=== PATIENT | female | born 1940 | race Caucasian/White ===

== ENCOUNTER → 2018-05-13 | Outpatient (CLI) | payer MEDICARE ==
--- NOTE | 2018-05-14 13:25 | MM ---
Reason for exam: screening (asymptomatic). Last mammogram was performed 2 years ago. History: Patient is postmenopausal. Excisional biopsy of the right breast, March 11, 2007. Excisional biopsy of the right breast, June 20, 2006. Benign right mammotome panel of the right breast, June 06, 2006. Physical Findings: A clinical breast exam by your physician is recommended on an annual basis and results should be correlated with mammographic findings. MG 3D Screening Mammo W/Cad Bilateral CC and MLO view(s) were taken. Prior study comparison: May 14, 2016, bilateral MG 3d screening mammo w/cad. July 01, 2014, bilateral MG screening mammo w CAD. There are scattered fibroglandular densities. There is chronic nodularity in the left breast. No significant changes when compared with prior studies. ASSESSMENT: Benign, BI-RAD 2 RECOMMENDATION: Routine screening mammogram of both breasts in 1 year.
== END | disposition home or self-care (01) ==
LOC: RADMAMWWP 14:49
PROVIDERS: ATTEND Internal Medicine Geriatric Medicine
DX: Z12.31 Encounter for screening mammogram for malignant neoplasm of breast (principal)
CPT/HCPCS: 77063; 77067

== ENCOUNTER → 2020-02-08 | Outpatient (CLI) | payer MEDICARE ==
--- NOTE | 2020-02-08 15:58 | BD ---
EXAMINATION TYPE: Axial Bone Density DATE OF EXAM: 02/08/2020 COMPARISON: 05/14/2016 CLINICAL HISTORY: Height: 61.2 IN Weight: 182 LBS RISK FACTORS HISTORY OF: Active: YES Postmenopausal woman: AGE 57 Lost more than 2 inches in height since high school: YES 3" MEDICATIONS: Additional Medications: CALCIUM, VIT D, HIGH CHOLESTEROL MEDS EXAM MEASUREMENTS: Bone mineral densitometry was performed using the FIRE1 System. Bone mineral density as measured about the Lumbar spine is: ----- L1-L4(G/cm2): 1.244 T Score Values are as follows: ----- L2: 0.6 ----- L3: 0.0 ----- L4: 1.6 ----- L1-L4: 0.5 Bone mineral density has: Increased 1.1% since study of: 05/14/2016 Bone mineral density about the R hip (g/cm2): 0.854 Bone mineral density about the L hip (g/cm2): 0.843 T Score values are as follows: -----R Neck: -1.3 -----L Neck: -1.4 -----R Total: -0.9 -----L Total: -0.8 Bone mineral density has: Decreased -2.5% since study of: 05/14/2016 IMPRESSION: No evidence for osteoporosis or osteopenia. NOTE: T-SCORE=SD OF THE YOUNG ADULT MEAN.
--- NOTE | 2020-02-14 12:01 | MM ---
Reason for exam: screening (asymptomatic). Last mammogram was performed 1 year and 9 months ago. History: Patient is postmenopausal. Excisional biopsy of the right breast, March 11, 2007. Excisional biopsy of the right breast, June 20, 2006. Benign right mammotome panel of the right breast, June 06, 2006. Physical Findings: A clinical breast exam by your physician is recommended on an annual basis and results should be correlated with mammographic findings. MG 3D Screening Mammo W/Cad Bilateral CC and MLO view(s) were taken. Prior study comparison: May 13, 2018, bilateral MG 3d screening mammo w/cad. May 14, 2016, bilateral MG 3d screening mammo w/cad. There are scattered fibroglandular densities. There is chronic nodularity in the right breast. There is no discrete abnormality. ASSESSMENT: Benign, BI-RAD 2 RECOMMENDATION: Routine screening mammogram of both breasts in 1 year.
== END | disposition home or self-care (01) ==
LOC: RADMAMWWP 13:34
PROVIDERS: ATTEND Internal Medicine Geriatric Medicine
DX: Z12.31 Encounter for screening mammogram for malignant neoplasm of breast (principal); M81.0 Age-related osteoporosis without current pathological fracture
CPT/HCPCS: 77063; 77067; 77080

== ENCOUNTER → 2020-11-15 | Outpatient (CLI) | payer MEDICARE ==
--- NOTE | 2020-11-15 12:52 | US ---
EXAMINATION TYPE: US venous doppler duplex LE RT DATE OF EXAM: 11/15/2020 12:29 PM COMPARISON: NONE CLINICAL HISTORY: I82.402 DVT of Lt Lower extremity. SIDE PERFORMED: Right TECHNIQUE: The lower extremity deep venous system is examined utilizing real time linear array sonog ritu with graded compression, doppler sonography and color-flow sonography. VESSELS IMAGED: Common Femoral Vein Deep Femoral Vein Greater Saphenous Vein * Femoral Vein Popliteal Vein Small Saphenous Vein * Proximal Calf Veins (* superficial vessels) Right Leg: Negative for DVT IMPRESSION: No evidence for DVT at this time.
== END | disposition home or self-care (01) ==
LOC: RADUSWWP 12:27
PROVIDERS: ATTEND Internal Medicine Geriatric Medicine
DX: I82.402 Acute embolism and thrombosis of unspecified deep veins of left lower extremity (principal)

== ENCOUNTER → 2021-07-27 | Outpatient (CLI) | payer MEDICARE ==
--- NOTE | 2021-07-27 13:08 | MM ---
Reason for exam: screening (asymptomatic). Last mammogram was performed 1 year and 6 months ago. History: Patient is postmenopausal. Excisional biopsy of the right breast, March 11, 2007. Excisional biopsy of the right breast, June 20, 2006. Benign right mammotome panel of the right breast, June 06, 2006. Physical Findings: A clinical breast exam by your physician is recommended on an annual basis and results should be correlated with mammographic findings. MG 3D Screening Mammo W/Cad Bilateral CC and MLO view(s) were taken. Prior study comparison: February 08, 2020, bilateral MG 3d screening mammo w/cad. May 13, 2018, bilateral MG 3d screening mammo w/cad. There are scattered fibroglandular densities. There is chronic nodularity in the right breast. There is no discrete abnormality. ASSESSMENT: Benign, BI-RAD 2 RECOMMENDATION: Routine screening mammogram of both breasts in 1 year.
== END ==
LOC: RADMAMWWP 11:05
PROVIDERS: ATTEND Internal Medicine Geriatric Medicine
DX: Z12.31 Encounter for screening mammogram for malignant neoplasm of breast (principal)
CPT/HCPCS: 77063; 77067

== ENCOUNTER → 2023-05-16 | Outpatient (CLI) | payer MEDICARE ==
--- NOTE | 2023-05-16 14:16 | BD ---
EXAMINATION TYPE: Axial Bone Density DATE OF EXAM: 05/16/2023 CLINICAL HISTORY: 83 years old Female. ICD-10 CODE: M81.0 AGE-RELATED OSTEOPOROSIS W/ Height: 61 Weight: 176 FRAX RISK QUESTIONS: Glucocorticoids (More than 3mos): yes (Ex: prednisone, prednisolone, methylprednisolone, dexamethasone, and hydrocortisone). RISK FACTORS HISTORY OF: Postmenopausal woman: at 57 Lost more than 2 inches in height since high school: yes Frequent falls: unsteady Hyperparathyroidism: no Adrenal Insufficiency: no MEDICATIONS: Prednisone or other steroids: yes, for asthma Additional Medications: statin for cholesterol, vit d and calcium Additional History: cholesterol, asthma, EXAM MEASUREMENTS: Bone mineral densitometry was performed using the [employer] System. Bone mineral density as measured about the Lumbar spine is: ----- L1-L4(G/cm2): 1.222 T Score Values are as follows: ----- L1: -1.1 ----- L2: 0.1 ----- L3: 0.6 ----- L4: 1.3 ----- L1-L4: 0.3 Z Score Values are as follows: ----- L1: 0.3 ----- L2: 1.5 ----- L3: 1.9 ----- L4: 2.6 ----- L1-L4: 1.7 Bone mineral density has: Decreased -1.8% since study of: 02.08.2020 Bone mineral density about the R hip (g/cm2): 0.762 Bone mineral density about the L hip (g/cm2): 0.886 T Score values are as follows: -----R Neck: -2.3 -----L Neck: -1.5 -----R Total: -2.0 -----L Total: -1.0 Z Score values are as follows: -----R Neck: -0.4 -----L Neck: 0.0 -----R Total: -0.2 -----L Total: 0.8 Bone mineral density has: Decreased -8.7% since study of: 02.08.2020 FRAX%s: The graph provided illustrates a 24.4% chance for a major osteoporotic fx and a 9.2% chance f or the hips probability for fx in 10 years time. IMPRESSION: Osteopenia (T Score between -2.5 and -1). There is slightly increased risk of fracture and the patient may be considered for treatment. Re-Screen 2-5 years. NOTE: T-SCORE=SD OF THE YOUNG ADULT MEAN.
--- NOTE | 2023-05-19 12:44 | MM ---
Reason for Exam: Screening (asymptomatic). Last mammogram was performed 1 year(s) and 10 month(s) ago. Patient History: Menarche at age 13. First Full-Term at age 21. Postmenopausal. 03/11/2007, Excisional Biopsy on the Right side. 06/20/2006, Excisional Biopsy on the Right side. 06/06/2006, Benign Core Biopsy on the right side. Risk Values: Madison 5 year model risk: 2.1%. NCI Lifetime model risk: 2.8%. Prior Study Comparison: 05/13/2018 Bilateral Screening Mammogram, [facility]. 02/08/2020 Bilateral Screening Mammogram, [facility]. 07/27/2021 Bilateral Screening Mammogram, [facility]. Tissue Density: There are scattered fibroglandular densities. Findings: Analyzed By CAD. There is no suspicious group of microcalcifications or new suspicious mass in either breast. Overall Assessment: Negative, BI-RAD 1 Management: Screening Mammogram of both breasts in 1 year. . Patient should continue monthly self-breast exams. A clinical breast exam by your physician is recommended on an annual basis. This exam should not preclude additional follow-up of suspicious palpable abnormalities. Note on Madison scores and lifetime risk: 1. A Madison score greater than 3% is considered moderate risk. If this is the case, consider specialist referral to assess eligibility for a risk reducing agent. 2. If overall lifetime risk for the development of breast cancer is 20% or higher, the patient may qualify for future screening with alternating mammogram and breast MRI. Electronically signed and approved by: Shashi Priest M.D. Radiologis
== END | disposition home or self-care (01) ==
LOC: RADMAMWWP 13:15
PROVIDERS: ATTEND Internal Medicine Geriatric Medicine
DX: Z12.31 Encounter for screening mammogram for malignant neoplasm of breast (principal); M81.0 Age-related osteoporosis without current pathological fracture; M85.89 Other specified disorders of bone density and structure, multiple sites; Z78.0 Asymptomatic menopausal state
CPT/HCPCS: 77063; 77067; 77080

== ENCOUNTER → 2023-08-08 | Outpatient (CLI) | payer MEDICARE ==
[~2023-08-08] MED LIST: REGADENOSON 0.4 MG/5 ML SYRINGE IV PRN
--- NOTE | 2023-08-08 11:12 | NM ---
EXAMINATION TYPE: NM stress lexiscan cardiolite DATE OF EXAM: 08/08/2023 COMPARISON: NONE CLINICAL INDICATION: Female, 83 years old with history of I25.119 ATHSCL HEART DISEASE Z01.[address] FOR; TECHNIQUE: After the intravenous administration of 9.46 mCi Tc 99m Sestamibi - Cardiolite resting SP ECT images acquired 45 minutes post injection. The patient received 0.4mg Lexiscan, 25.4 mCi Tc 99m Sestamibi - Stress images obtained [address] injection FINDINGS: Review of stress and rest SPECT images demonstrates no distinct perfusion abnormality. Gated analysi s shows normal wall motion with an estimated left ventricular ejection fraction of 59 %. IMPRESSION: No scintigraphic evidence for reversible ischemia.
--- NOTE | 2023-08-08 13:46 | CA ---
Lexiscan Nuclear Stress Test Report Name: Domitila Hernandez Exam Date: 08/08/2023 09:27 Exam Location: [facility] Ht (in): 63 Wt (lb): 170 BSA: 1.80 Ordering Phys: Gunnar Marcus MD Referring Phys: Vincenzo Moody DO Technologist: Dejon Garcia Age: 83 Gender: F : 1940 Procedure CPT: Indications: I25.119 ATHSCL HEART DISEASE Z01.818 ENCOUNTER FOR ICD-10 Codes: Patient History: Medications: SEE LIST Meds past 24 hrs: Pretest Chest Pain: STRESS TEST Lexiscan Protocol Exercise Duration (min:sec): 02:[address] Depressions (mm): Angina Score: Cutler Score: Resting HR (bpm): 59 Peak HR (bpm): 82 Resting BP (mmHg): 177 / 71 Peak BP (mmHg): 137 / 72 MPHR: 138 Target HR: 117 % MPHR: 59 METS: 1.0 Total Dose: Peak Dose: Atropine: Double Product: 98198 BP Response: Stress Termination: PROTOCOL COMPLETE Stress Symptoms: No chest pain or symptoms Stress Summary: ECG ANALYSIS Resting ECG: Sinus rhythm, first-degree AV block, left bundle- branch block, normal axis, heart rate 66 beats a minute Stress ECG: ECG is nondiagnostic for ischemia because of resting left bundle-branch block CONCLUSIONS Nondiagnostic ECG because of resting left bundle-branch block Please refer to the nuclear portion of the stress test for complete interpretation of this study Dr Miguel Barr (Electronically Signed) Final Date: 08 August 2023 13:45
== END | disposition home or self-care (01) ==
LOC: RADNMMAIN 08:00
PROVIDERS: ATTEND Internal Medicine Geriatric Medicine
DX: Z01.818 Encounter for other preprocedural examination (principal); I44.7 Left bundle-branch block, unspecified; I25.119 Atherosclerotic heart disease of native coronary artery with unspecified angina pectoris
CPT/HCPCS: 93017; 78452; A9500; J2785

== ENCOUNTER → 2023-08-18 | Outpatient (CLI) | payer MEDICARE ==
[2023-08-18 15:25] LABS: INR 0.9 (<1.2); Partial Thromboplastin Time 26.7 sec (22.0-30.0); Prothrombin Time 10.3 sec (10.0-12.5)
[2023-08-18 18:59] LABS: HCT 38.6 % (37.2-46.3); HGB 12.1 g/dL (12.0-15.0); MCH 30.3 pg (27.0-32.0); MCHC 31.3 g/dL (32.0-37.0); MCV 96.7 FL (80.0-97.0); Mean Platelet Volume 10.4 FL (9.5-12.2); NRBC Per 100 WBC 0 X 10*3/uL (0.00-0.01); Platelet Count 281 X 10*3/uL (140-440); RBC 3.99 X 10*6/uL (4.10-5.20); WBC 7.26 X 10*3/uL (4.50-10.00)
[2023-08-18 19:53] LABS: Blood Urea Nitrogen 11.7 mg/dL (9.0-27.0); Carbon Dioxide 28.1 mmol/L (21.6-31.8); Chloride 100 mmol/L (96-109); Glucose 80 mg/dL (70-110); Potassium 4.3 mmol/L (3.5-5.5); Sodium 138 mmol/L (135-145)
[2023-08-18 19:54] LABS: ALT 16 U/L (8-44); AST 19 U/L (13-35); Albumin 4.2 g/dL (3.8-4.9); Albumin/Globulin Ratio 1.31 Ratio (1.60-3.17); Alkaline Phosphatase 48 U/L (41-126); Calcium 9.4 mg/dL (8.7-10.3); Globulin 3.2 g/dL (1.6-3.3); Total Bilirubin 0.2 mg/dL (0.3-1.2); Total Protein 7.4 g/dL (6.2-8.2)
== END | disposition home or self-care (01) ==
LOC: LABPAT 14:15
PROVIDERS: ATTEND Orthopaedic Surgery
DX: Z01.812 Encounter for preprocedural laboratory examination (principal); M17.11 Unilateral primary osteoarthritis, right knee; Z22.322 Carrier or suspected carrier of Methicillin resistant Staphylococcus aureus
CPT/HCPCS: 80053; 85027; 85610; 85730; 87070

== ENCOUNTER 2023-08-26 07:26 | Day surgery (SDC) | payer MEDICARE ==
[2023-08-21 12:58] VITALS: BMI 29.6
[~2023-08-26 07:26] MED LIST changes: +HYDROmorphone 0.5 MG/0.5 ML SYRINGE IVP PRN; +LIDOCAINE 1% (10MG/ML) FOR IV START INTRADERMA PRN; -REGADENOSON 0.4 MG/5 ML SYRINGE IV PRN; +TRANEXAMIC 1,000 MG/100ML-NACL 1,000 MG in SALINE 1 100ML.BAG IVPB PRN
[2023-08-26] MEDS: ONDANSETRON 4 MG/2 ML VIAL IVP ONE (08:08)
[2023-08-26] MEDS: GABAPENTIN 300 MG CAP PO PRN (08:08)
[2023-08-26] MEDS: MELOXICAM 7.5 MG TAB PO PRN (08:08)
[2023-08-26] MEDS: ACETAMINOPHEN TAB 500 MG TAB PO PRN ×2 (08:08→22:48)
[2023-08-26] MEDS: LACTATED RINGERS 1,000 ML IV SCH (08:09)
[2023-08-26] MEDS: MIDAZOLAM 2 MG/2 ML VIAL IVP ONE (08:35)
[2023-08-26] MEDS: fentaNYL (PF) 50 MCG/ML 2 ML AMP IVP ONE (08:38)
[2023-08-26] MEDS ORDERED: NA PHOS,M-B/NA PHOS,DI-BA 133 ML ENEMA RECTAL PRN (08:47)
[2023-08-26] MEDS ORDERED: HYDROmorphone 0.5 MG/0.5 ML SYRINGE IVP PRN ×3 (08:47)
[2023-08-26] MEDS ORDERED: bisacodyL 10 MG SUPP RECTAL PRN (08:47)
[2023-08-26] MEDS ORDERED: NALOXONE 0.4 MG/ML 1 ML VIAL IV PRN (08:47)
[2023-08-26] MEDS ORDERED: MAGNESIUM HYDROXIDE 2,400 MG/30 ML CUP PO PRN (08:47)
[2023-08-26] MEDS ORDERED: ONDANSETRON 4 MG/2 ML VIAL IVP PRN (08:47)
[2023-08-26] MEDS ORDERED: HYDROcodone/APAP 7.5-325MG 1 EACH TAB PO PRN (08:49)
[2023-08-26] MEDS ORDERED: PROPOFOL 10 MG/ML 20 ML VIAL IV ONE (08:54)
[2023-08-26] MEDS ORDERED: TRANEXAMIC 1,000 MG/100ML-NACL PREMIX BAG ONE (08:54)
[2023-08-26] MEDS ORDERED: SODIUM CHLORIDE 0.9% (PF) 10 ML VIAL ONE (08:54)
[2023-08-26] MEDS ORDERED: PHENYLEPHRINE 10 MG/ML VIAL ONE (08:54)
[2023-08-26] MEDS ORDERED: ROPIVACAINE 5 MG/ML 30 ML VIAL ONE (08:54)
[2023-08-26] MEDS: ceFAZolin 1,000 MG in SODIUM CHLORIDE 0.9% 1,000 ML IRRIGATION ONE (08:59)
--- NOTE | 2023-08-26 10:09 | P.OP ---
Date of Procedure: 08/26/23 Preoperative Diagnosis: Severe osteoarthritis right knee Postoperative Diagnosis: Severe osteoarthritis right knee Procedure(s) Performed: Right total knee arthroplasty Implants: [employer]hew Journey II CR Oxinium cruciate retaining femoral component size 3, right [employer] Journey nonporous tibial baseplate size 2, right [employer] Journey II, XLPE Deep Dished articular insert, size 11 mm, Size 1-2, right [employer] Journey Lucretia II resurfacing patellar component, oval, 29 mm All components were cemented using Palacos R bone cement The articulation is Oxinium on polyethylene Anesthesia: spinal Surgeon: Vincenzo Moody Aligning Checker #1: Radha Pereira Estimated Blood Loss (ml): 30 Pathology: none sent Condition: stable Disposition: PACU Indications for Procedure: The patient's knee is end-stage, and conservative management has failed. The operation of knee replacement has been discussed at length in the office, as well as potential risks and complications. These are inclusive of, but not limited to: Infection, bleeding, scarring, discomfort, stiffness, blood vessel and nerve damage, need for further surgery, failure to relieve symptoms, persistence, recurrence, or worsening of problems, loosening, dislocation, wear, blood clot, pulmonary embolism, , gait dysfunction, stiffness, and other risks as discussed in the office. Patient elects to proceed and the consent form has been signed. Operative Findings: The operative findings are consistent with severe osteoarthritis of the right knee Description of Procedure: The patient was seen in the preoperative area, the consent was reviewed and the operative site was marked with a skin marker. The patient verified the procedure and the operative site. An adductor canal pain catheter and an iPACK block were placed by anesthesia in the preoperative area. The patient was then brought to the operating room and positioned on the operating room table in the supine position. Preoperative antibiotics and a gram of tranexamic acid were given intravenously. A spinal anesthetic was administered by the anesthesia department. Care was taken to make sure that all pressure points were adequately padded. A tourniquet was placed on the upper thigh and the lower extremity was prepped with ChloraPrep and draped in usual sterile fashion. A universal time-out was then performed which confirmed the patient's name, surgical site, ALLERGIES, and consent. The lower extremity was then exsanguinated and tourniquet was inflated to 250 mmHg. A standard anterior midline approach to the knee was performed. The skin and subcutaneous tissue were sharply dissected down to the patellar tendon. A medial parapatellar arthrotomy was then performed. The knee was then extended, the patellar was everted, and the knee was flexed. The infra-patellar fat pad was removed in order to enhance exposure. The anterior horns of both menisci were excised, and a release was performed to the posterior medial aspect of the knee. On gross visual inspection, there was complete loss of articular cartilage in the medial and patellofemoral joint spaces. There was also significant cartilage damage in the lateral compartment. There were multiple periarticular osteophytes globally about the knee which were then removed with a Ronguer. The femoral canal was then opened with the 9.5 mm intramedullary drill. The 8 mm intramedullary james was then inserted into the femoral canal with the distal femoral cutting guide set for 5 of valgus. The distal femoral cutting block was then pinned in place. The intramedullary james was then removed, and the distal femur was then cut. The cutting block was then removed and the cut was checked for symmetry. The resected bone was then measured to confirm the appropriate distal femoral resection. Next, the sizing guide was then placed and set for 3 external rotation based off of the epicondylar axis and Woodward's line. Pins were then placed and the drill holes, and the femur was sized with the sizing stylus. The pins were then removed, and the sizing guide was then removed. The spikes of the appropriate size femoral block was then placed into the predrilled holes, and malleted into place. Two 45 mm pins were then placed into the fixation holes on the cutting block. An zane wing was then used to ensure there would be no notching with the anterior cut. The anterior condyles were cut without notching. The anterior chord cut was then performed, followed by the posterior cut, posterior chamfer cut, and the anterior chamfer cut. The collateral ligaments were protected during the entire process. The cutting block was then removed. Any remaining bone and osteophytes were removed from the femur with a Ronguer. Attention was then directed to the tibia. The remaining ACL was removed with a Ronguer, and the tibia was then gently subluxed forward with a large bent knee retractor. Any remaining menisci were excised. The posterior lateral corner was cauterized in order to coagulate the lateral geniculate artery. The extra medullary tibial cutting guide was then placed, set for the appropriate rotation, slope, and depth of resection. The proximal tibia cutting guide was then pinned in place. Proximal tibia was then cut and sized. A curved osteotome was then used to remove any posterior osteophytes from the distal femur. The femoral trial was placed. A narrow saw blade was then used to remove the anterior intracondylar femoral bone. The CR notch trial was then placed. The tibial trial was placed with the appropriate-sized insert. The knee was able to fully extend and flex to 130 and was stable throughout all range of motion. The knee was then extended and the patella was everted. Patella was then measured, and then using an osteotomy guide, the patella was cut at the appropriate level. The patellar component was sized. The patellar drill guide was placed and the patella was drilled. The patella trial was then placed. The knee was then taken through range of motion with the patella trial and the patella tracked normally using the no thumbs technique. The patella trial was then removed. The knee was then flexed and lug holes were drilled through the femoral trial and the femoral trial was then removed. The tibial was then re- exposed, and the tibial broach guide was then pinned in place after it was set for the appropriate rotation to allow for the most coverage without overhang. The tibia was then reamed and broached. The femoral canal was plugged with autologous bone. The cut surfaces of bone were then irrigated with pulsatile lavage. The knee was also irrigated with Irrisept solution. The components were then opened, the cement was mixed. Cement was placed on the backside of the femoral, tibial, and patellar components. Cement was then applied to the tibial surface and pressurized into the surface using finger pressurization technique. The tibial component was then applied and excess cement was removed after it was impacted securely noted to be flush with the cut surface. In similar fashion, the cement was applied to the cut femoral surface, pressurized and using finger pressurization the component was impacted in place. Excess cement was removed. The polyethylene spacer was then implanted and locked into position. Patellar component was then applied in a similar technique and the patellar clamp was used to hold patella in place while the cement hardened. The knee was held in full extension while the cement hardened. Once the cement had fully hardened, the knee was reinspected. Any other cement extrusion was removed the final range of motion testing showed range of motion from 0-130 with excellent stability, both medial and laterally and appropriate alignment of the leg. Patella tracked normally. After the cemented hardened, the tourniquet was released and hemostasis was obtained. A second gram of transexamic acid was given intravenously. The knee was again irrigated. The knee was again taken through range of motion and found to be stable throughout all range of motion of 0-130, and the patella tracked normally. The fascia was then closed with 0 Vicryl followed by #2 strata fix suture. The subcutaneous tissue was closed with 3-0 Vicryl and 3-0 strata fix. Exofin glue was used for the skin and placed with the knee in flexion. After the glue had dried, and Optafoam silver impregnated dressing was applied. A lightly compressive dressing was applied using web roll and Santo wrap. Patient was then transferred to the stretcher and taken to recovery room in stable condition. Sponge and needle counts were correct. The marketing communications assistant KARINA Rahman was required due the complexity surgery and the need for a skilled neurosurgical nurse. She assisted in positioning, draping, retraction, and closure of the wound.
[2023-08-26] MEDS: LACTATED RINGERS 300 ML IV ONE (10:38)
[2023-08-26 10:43] LABS: Glucose,Whole Blood 97 mg/dL (70-110)
[2023-08-26] MEDS: ROPIVACAINE 0.75% 1,100 MG, SODIUM CHLORIDE 0.9% 500 ML 403 ML, EMPTY PAIN BALL 1 EACH MISCELLANE PRN (11:00)
--- NOTE | 2023-08-26 11:57 | P.ANPRN ---
Procedure Note - Anesthesia - Nerve Block Performed Right Adductor Canal Infusion Time Out Performed: Yes (0835) Date of Procedure: 08/26/23 Procedure Start Time: 08:36 Procedure Stop Time: 08:41 Location of Patient: PreOp Indication: Acute Post-Operative Pain, Requested by Surgeon Specifically requested for management of pain by DrEmber: Vincenzo Moody Sedation Type: Sedate with meaningful contact maintained Preparation: Sterile Prep, Sterile Dressing Position: Supine Catheter Depth at Skin (cm): 8 Catheter: Indwelling Needle Types: Pajunk Needle Gauge: 18 Ultrasound used to visualize needle placement: Yes Ultrasound used to observe medication spread: Yes Injectate: 0.5% Ropivacaine (see comment for volume) (15cc+10cc nacl pf) Blood Aspirated: No Pain Paresthesia on Injection Noted: No Resistance on Injection: Normal Image Stored and Saved: Yes Events: Uneventful and Well Tolerated
--- NOTE | 2023-08-26 11:58 | XR ---
EXAMINATION TYPE: XR knee limited RT DATE OF EXAM: 08/26/2023 11:19 AM CLINICAL INDICATION:Female, 83 years old with history of Evaluation for Postop abnormality and alignm ent; [facility] COMPARISON: None. TECHNIQUE AND FINDINGS: Two views of the right knee. A total knee arthroplasty is in place, appears intact and normally align ed. No abnormal perihardware lucency or fracture. No significant malalignment. Posterior resurfacing changes of the patella. Soft tissues show no unexpected radiopaque foreign body. Some regional soft t issue gas is present, not unexpected postoperative. Surgical clips in the medial upper calf. IMPRESSION: Status post placement of right total knee arthroplasty. No evidence of complication.
--- NOTE | 2023-08-26 11:58 | P.ANPRN ---
Procedure Note - Anesthesia - Nerve Block Performed Right iPack Single Time Out Performed: Yes (0835) Date of Procedure: 08/26/23 Procedure Start Time: 08:42 Procedure Stop Time: 08:46 Location of Patient: PreOp Indication: Acute Post-Operative Pain, Requested by Surgeon Specifically requested for management of pain by DrEmber: Vincenzo Moody Sedation Type: Sedate with meaningful contact maintained Preparation: Sterile Prep Position: Supine Catheter: None Needle Types: Pajunk Needle Gauge: 21 Ultrasound used to visualize needle placement: Yes Ultrasound used to observe medication spread: Yes Injectate: 0.5% Ropivacaine (see comment for volume) (15cc +10cc nacl pf) Blood Aspirated: No Pain Paresthesia on Injection Noted: No Resistance on Injection: Normal Image Stored and Saved: Yes Events: Uneventful and Well Tolerated
[2023-08-26] MEDS: LACTATED RINGERS 1,000 ML IV ONE ×2 (12:45→12:47)
[2023-08-26 16:36] LABS: Glucose,Whole Blood 71 mg/dL (70-110)
[2023-08-26] MEDS: HYDROcodone/APAP 7.5-325MG 1 EACH TAB PO PRN (17:48)
[2023-08-26] MEDS: SODIUM CHLORIDE 0.9% 1,000 ML IV SCH (17:52)
[2023-08-26 20:34] LABS: Glucose,Whole Blood 99 mg/dL (70-110)
[2023-08-26] MEDS: ATORVASTATIN 20 MG TAB PO SCH (20:45)
[2023-08-26] MEDS: LATANOPROST 0.005% OPHTH DROPS 2.5 ML BTL BOTH EYES SCH (20:45)
[2023-08-26] MEDS: SENNOSIDES-DOCUSATE SODIUM 1 EACH TAB PO SCH (20:45)
[2023-08-26] MEDS: ASPIRIN 325 MG TAB PO SCH (20:45)
[2023-08-26] MEDS: DORZOLAMIDE HCL BOTH EYES SCH (21:39)
--- NOTE | 2023-08-27 04:42 | P.CONS ---
History of Present Illness - Reason for Consult Consult date: 08/26/23 medical managment Requesting physician: Vincenzo Moody - Chief Complaint Right total knee arthroplasty - History of Present Illness HISTORY OF PRESENT ILLNESS: 83-year-old cardiomyopathy patient with History of hyperlipidemia, hyperglycemia, chronic osteoarthritis, left bundle branch block, chronic edema with phlebitis in the past. She was seen in our office for over 20 years no major admission to the hospital or major cardiovascular problem last 20 years. She had suffered from severe arthritis of the right knee become quite a bit worse last few months hindering her ability to do her daily activity and able to take care of her own house chores and staying active. She had seen Dr. Moody was diagnosed with severe degenerative arthritis of the right knee as close failure with conservative management decided to pursue total knee arthroplasty. She had her surgery today successfully with no major complications still have pain management systemic starting on her right knee, pain is under control and had no complication hemodynamically so far her blood pressure and vitals are pretty normal. Patient admitted to the hospital will be starting physical therapy service tonight or tomorrow morning. REVIEW OF SYSTEMS: CONSTITUTIONAL: Well-developed no acute respiratory distress. EYES: No icterus sclerae, no conjunctivitis. EARS, NOSE, MOUTH, THROAT, and FACE: No sore throat, lymphadenopathy, carotid bruits or deformity. RESPIRATORY: No SOB cough or wheezes. CARDIOVASCULAR: No CP, Palpitation, PND, Orthopnea, or angina. GASTROINTESTINAL: No Abd pain, Nausea or vomiting, no Diarrhea or constipation, No GI Bleed, no distention or masses. GENITOURINARY: Negative for Hematuria or UTI, no kidney stones. INTEGUMENT/BREAST: Slight arthritis lower back pain. HEMATOLOGIC/LYMPHATIC: Negative for bleed or purpura. MUSCULOSKELTAL: Arthralgia and myalgia with Leyva's cyst on the right side. NEURLOGICAL: No LOC, Sz or syncope, blurred vision dizziness or abnormality.. BEHAVIORAL/PSYCH: Negative. ENDOCRINE: Negative. PHYSICAL EXAMINATION: General Appearance: Alert, cooperative, no distress, appears stated age. Neck HEENT: Supple, no lymphadenopathy, no thyroid enlargement, no carotid bruits. Lungs: Clear to auscultation without crackles or wheezes no rhonchi, no deformity. Chest Wall: Chest wall normal expansion with deep inspiration no tenderness and no deformity was found on exam, no costochondral pain or discomfort. Heart: Regular rate and rhythm, S1, S2 normal, no murmur, rub or gallop. Back: Symmetric, no curvature, ROM normal, no CVA tenderness. Abdomen: Soft, non-tender, bowel sounds active all four quadrants, no masses, no organomegaly. Extremities: Trace edema on both sides, right knee has Leyva's cyst incision being covered currently with dressing no sign of bleed she has a pain management system about the knee. Left side had still trace edema with mild varicose vein. Pulses: 2+ and symmetric. Skin: Skin color, texture, tugor normal, no rashes or lesions. Neurologic: Alert oriented x3 cranial nerves II through XII intact, no motor deficit, no abnormal balance or gait. ASSESSMENT AND PLAN: _Right total knee arthroplasty: Surgery done successfully with no complication she still having pain management system, patient is pain-free has not moved yet physical therapy will be starting as early as today. Continue DVT, GI, pulmonary prophylaxis with early mobilization. _Elevated blood pressure: No medications so far as blood pulse was above 140 we will add small low-dose of ARB as losartan 25 to 50 mg a day. _Hyperlipidemia: Remain on Vytorin which is combination of simvastatin and Zetia will continue both. 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 _Chronic stasis dermatitis and history of phlebitis. I will increase patient's risk of having complication with DVT after surgery denies any mention in my preop clearance patient will benefit from being on anticoagulation with product like Xarelto 10 or 15 mg daily for at least the first [address] weeks if agree with Dr[address] Moody we will start on it as early as tomorrow morning. Hyperglycemia: With no official diagnosis of diabetes, A1c has been borderline we will continue Accu-Chek with status post coverage of this point. Chronic edema: Patient is doing knee-high HERNANDEZ hose and low-salt in the past never require major diuretics she had an occasional use of hydrochlorothiazide or Dyazide when the swelling is worsening. 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 DVT prophylaxis: Patient agreed with orthopedic will start using Xarelto 10 mg daily for total of 2 weeks, patient was giving sample from the office if preferred by orthopedic to extend the treatment up to 4 weeks can be beneficial we can do CBC group home through her treatment and management. GI prophylaxis: Remain on Pepcid 20 mg daily. CODE STATUS: Full code. Dr. Moody thank very much for the consult if I can be any further help to place the minute. Past Medical History Past Medical History: Asthma, Eye Disorder, Hyperlipidemia, Osteoarthritis (OA) Additional Past Medical History / Comment(s): Glaucoma. Allergy Induced Asthma, seasonal allergies, Hayfever. Varicose vein - right leg. History of Any Multi-Drug Resistant Organisms: None Reported Past Surgical History: Breast Surgery, Tonsillectomy Additional Past Surgical History / Comment(s): VEIN STRIPPING, laser eye surgery. Past Anesthesia/Blood Transfusion Reactions: Previous Problems w/ Anesthesia Additional Past Anesthesia/Blood Transfusion Reaction / Comm: After vein stripping had hard time waking up. Past Psychological History: No Psychological Hx Reported Smoking Status: Never smoker Past Alcohol Use History: None Reported Past Drug Use History: None Reported - Past Family History Brother(s) Family Medical History: Deep Vein Thrombosis (DVT) Medications and Allergies Home Medications Medication Instructions Recorded Confirmed Type Simvastatin [Zocor] 40 mg PO HS 01/27/08/26/23 History Acetaminophen Tab [Tylenol Tab] 500 - 1,000 mg PO Q4-6H PRN 08/21/23 08/26/23 History Aspirin [Adult Low Dose Aspirin EC] 81 mg PO DAILY 08/21/23 08/26/23 History Calcium Carbonate [Calcium] 600 mg PO DAILY 08/21/23 08/26/23 History Calcium, Magnesium, Zinc, Vitd 1 tab PO DAILY 08/21/23 08/26/23 History Dorzolamide HCl/Pf [Dorzolamide 2% 1 drop BOTH EYES BID 08/21/23 08/26/23 History Eye Drop] Ezetimibe [Zetia] 10 mg PO DAILY 08/21/23 08/26/23 History Fish Oil 380mg 380 mg PO DAILY 08/21/23 08/26/23 History Glucosamine/Chondr Arnold A Sod [Osteo 1 each PO DAILY 08/21/23 08/26/23 History Bi-Flex Caplet] Latanoprost [Latanoprost 0.005%] 1 drop BOTH EYES HS 08/21/23 08/26/23 History Aspirin 325 mg PO BID #60 tab 08/26/23 Rx HYDROcodone/APAP 7.5-325MG [[place] 1 - 2 tab PO Q6H PRN #32 tab 08/26/23 Rx 7.5-325] Sennosides [Senokot] 2 tab PO DAILY PRN #60 tablet 08/26/23 Rx Allergies Allergy/AdvReac Type Severity Reaction Status Date / Time cabbage Allergy Unknown Verified 08/26/23 07:52 Physical Exam Vitals: Vital Signs Temp Pulse Resp BP Pulse Ox 08/26/23 17:14 97.5 F L 65 17 165/78 98 08/26/23 15:00 76 16 129/63 94 L 08/26/23 14:15 58 L 16 131/64 100 08/26/23 13:45 57 L 16 108/57 96 08/26/23 13:15 54 L 16 131/70 100 08/26/23 12:45 53 L 16 100/54 98 08/26/23 12:15 53 L 16 107/50 97 08/26/23 11:45 51 L 16 96/53 100 08/26/23 11:18 61 13 116/56 97 08/26/23 11:03 60 13 112/64 99 08/26/23 10:48 58 L 13 109/60 98 08/26/23 10:33 97.0 F L 56 L 13 117/62 99 08/26/23 08:54 56 L 16 157/70 98 08/26/23 07:58 98.8 F 72 16 158/74 95 Intake and Output 08/26/23 08/26/23 08/26/23 06:59 14:59 22:59 Intake Total 2451 Output Total 30 Balance 2421 Intake: IV 2451 Output: Estimated Blood Loss 30 Other: # Voids 0 Weight 81.9 kg 81.9 kg
[2023-08-27 06:11] LABS: Glucose,Whole Blood 118 mg/dL (70-110)
--- NOTE | 2023-08-27 07:40 | P.PN ---
Progress Note - Text 08/27/23 89am -year-old female status post total knee replacement. Patient has an On-Q pump for postop pain control with a solution running at 8 cc an hour with a VAS of 1. Dressing clean dry and intact. Plan to continue on-q pump infusion
[2023-08-27] MEDS: ASPIRIN 81 MG PO SCH (09:55)
[2023-08-27] MEDS: RIVAROXABAN 10 MG TAB PO SCH (10:04)
[2023-08-27] MEDS: FAMOTIDINE 20 MG TAB PO SCH (10:05)
[2023-08-27] MEDS: CALCIUM CARBONATE 500 MG CHEWABLE PO SCH (10:05)
[2023-08-27] MEDS: EZETIMIBE 10 MG TAB PO SCH (10:05)
--- NOTE | 2023-08-27 10:09 | P.PN ---
Subjective Progress Note Date: 08/27/23 This is a 83-year-old female who is status post right total knee arthroplasty. This is postoperative day #1 and patient is seen and evaluated at bedside with Dr. Vincenzo Moody. Patient states that she did well with physical therapy and her pain is well-controlled. Patient denies any fever/chills, chest pain, shortness breath, abdominal pain, numbness, weakness or tingling. Objective - Vital Signs Vital signs: Vital Signs Temp 98.9 F 08/27/23 07:04 Pulse 70 08/27/23 07:04 Resp 18 08/27/23 07:04 BP 112/67 08/27/23 07:04 Pulse Ox 94 L 08/27/23 07:04 FiO2 Intake & Output 08/26/23 08/27/23 08/27/23 18:59 06:59 18:59 Intake Total 2451 Output Total 30 Balance 2421 Weight 81.9 kg Intake: IV 2451 Output: Estimated Blood Loss 30 Other: Voiding Method Toilet # Voids 0 2 - Exam Vital signs are stable. Patient is in no acute distress and is alert and oriented 3. Calf is soft and nontender to palpation. Dressing is clean, dry, and intact. Patient has full foot and ankle motion without pain or difficulty. Sensation intact. Neurovascular status and circulatory status are intact. - Labs Labs: Abnormal Lab Results - Last 24 Hours (Table) 08/27/23 Range/Units 06:10 POC Glucose (mg/dL) 118 H (70-110) mg/dL Assessment and Plan (1) Osteoarthritis of right knee Current Visit: Yes Status: Acute Code(s): M17.11 - UNILATERAL PRIMARY OSTEOARTHRITIS, RIGHT KNEE SNOMED Code(s): 786680124937099 (2) Status post total right knee replacement Current Visit: Yes Status: Acute Code(s): Z96.651 - PRESENCE OF RIGHT ARTIFICIAL KNEE JOINT SNOMED Code(s): 2047554023196 Plan: #1 Continue with routine postoperative care and pain control, leave dressing in place for 7 days. #2 Anticoagulation with aspirin. #3 Physical therapy today. #4 Appreciate input from internal medicine. #5 Anticipate discharge home with home care tomorrow.
[2023-08-27] MEDS: CALCIUM PO SCH (10:42)
[2023-08-27] MEDS: MAGNESIUM PO SCH (10:42)
[2023-08-27] MEDS: VITD PO SCH (10:42)
[2023-08-27] MEDS: ZINC PO SCH (10:42)
[2023-08-27] MEDS: NON FORMULARY DRUG (Glucosamine/Chondr Su A Sod [Osteo Bi-Flex Caplet] 1 EACH Tablet) PO SCH (10:45)
[2023-08-27] MEDS: FISH OIL PO SCH (10:45)
[2023-08-27 10:57] LABS: Basophils # (A) 0.02 X 10*3/uL (0.00-0.10); Basophils % (A) 0.3 %; Eosinophils # (A) 0.18 X 10*3/uL (0.04-0.35); Eosinophils % (A) 2.3 %; HGB 10.2 g/dL (12.0-15.0); Lymphocytes # (A) 1.26 X 10*3/uL (0.90-5.00); Lymphocytes % (A) 15.8 %; MCH 30.2 pg (27.0-32.0); MCHC 30.9 g/dL (32.0-37.0); MCV 97.6 FL (80.0-97.0); Mean Platelet Volume 10.4 FL (9.5-12.2); Monocytes # (A) 0.83 X 10*3/uL (0.20-1.00); Monocytes % (A) 10.4 %; NRBC Per 100 WBC 0 X 10*3/uL (0.00-0.01); Neutrophils # (A) 5.66 X 10*3/uL (1.80-7.70); Neutrophils % (A) 70.8 %; Platelet Count 208 X 10*3/uL (140-440); RBC 3.38 X 10*6/uL (4.10-5.20); RDW 13.1 % (11.5-14.5); WBC 7.98 X 10*3/uL (4.50-10.00)
[2023-08-27 11:36] LABS: Glucose,Whole Blood 220 mg/dL (70-110)
[2023-08-27 16:35] LABS: Glucose,Whole Blood 138 mg/dL (70-110)
--- NOTE | 2023-08-28 05:38 | P.PN ---
Subjective Progress Note Date: 08/27/23 HISTORY OF PRESENT ILLNESS: 83-year-old cardiomyopathy patient with History of hyperlipidemia, hyperglycemia, chronic osteoarthritis, left bundle branch block, chronic edema with phlebitis in the past. She was seen in our office for over 20 years no major admission to the hospital or major cardiovascular problem last 20 years. She had suffered from severe arthritis of the right knee become quite a bit worse last few months hindering her ability to do her daily activity and able to take care of her own house chores and staying active. She had seen Dr. Moody was diagnosed with severe degenerative arthritis of the right knee as close failure with conservative management decided to pursue total knee arthroplasty. She had her surgery today successfully with no major complications still have pain management systemic starting on her right knee, pain is under control and had no complication hemodynamically so far her blood pressure and vitals are pretty normal. Patient admitted to the hospital will be starting physical therapy service tonight or tomorrow morning. 08-27-2023: She is feeling well she developed to have slight increased pain on the knee. Mobility still slightly decreased at this point she started physical therapy but was a bit difficult. Patient does not want to go to SNF she will remain in the hospital 1 day to improve her ability to walk ambulate and control her symptoms hopefully will be able to go home tomorrow. No complication and agreed to initiate Xarelto 10 mg daily as an anticoagulation patient had sample from the office to last for up to 4 weeks orthopedic might do anticoagulation only for 2 weeks. Patient has much higher risk for DVT including her venous stasis, chronic edema and large Leyva's cyst. REVIEW OF SYSTEMS: CONSTITUTIONAL: Well-developed no acute respiratory distress. EYES: No icterus sclerae, no conjunctivitis. EARS, NOSE, MOUTH, THROAT, and FACE: No sore throat, lymphadenopathy, carotid bruits or deformity. RESPIRATORY: No SOB cough or wheezes. CARDIOVASCULAR: No CP, Palpitation, PND, Orthopnea, or angina. GASTROINTESTINAL: No Abd pain, Nausea or vomiting, no Diarrhea or constipation, No GI Bleed, no distention or masses. GENITOURINARY: Negative for Hematuria or UTI, no kidney stones. INTEGUMENT/BREAST: Slight arthritis lower back pain. HEMATOLOGIC/LYMPHATIC: Negative for bleed or purpura. MUSCULOSKELTAL: Arthralgia and myalgia with Leyva's cyst on the right side. NEURLOGICAL: No LOC, Sz or syncope, blurred vision dizziness or abnormality.. BEHAVIORAL/PSYCH: Negative. ENDOCRINE: Negative. PHYSICAL EXAMINATION: General Appearance: Alert, cooperative, no distress, appears stated age. Neck HEENT: Supple, no lymphadenopathy, no thyroid enlargement, no carotid bruits. Lungs: Clear to auscultation without crackles or wheezes no rhonchi, no deformity. Chest Wall: Chest wall normal expansion with deep inspiration no tenderness and no deformity was found on exam, no costochondral pain or discomfort. Heart: Regular rate and rhythm, S1, S2 normal, no murmur, rub or gallop. Back: Symmetric, no curvature, ROM normal, no CVA tenderness. Abdomen: Soft, non-tender, bowel sounds active all four quadrants, no masses, no organomegaly. Extremities: Trace edema on both sides, right knee has Leyva's cyst incision being covered currently with dressing no sign of bleed she has a pain management system about the knee. Left side had still trace edema with mild varicose vein. Pulses: 2+ and symmetric. Skin: Skin color, texture, tugor normal, no rashes or lesions. Neurologic: Alert oriented x3 cranial nerves II through XII intact, no motor deficit, no abnormal balance or gait. ASSESSMENT AND PLAN: _Right total knee arthroplasty: Surgery done successfully with no complication she still having pain management system, patient is pain-free has not moved yet physical therapy will be starting as early as today. Continue DVT, GI, pulmonary prophylaxis with early mobilization. _Elevated blood pressure: Blood pressure has been higher only because of her pain symptoms but still running below 140 so try to avoid medication at this point. _Hyperlipidemia: Resume home meds at Vytorin which is simvastatin and Zetia no side effects. 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 _Chronic stasis dermatitis and history of phlebitis. I will increase patient's risk of having complication with DVT after surgery denies any mention in my preop clearance patient will benefit from being on anticoagulation with product like Xarelto 10 or 15 mg daily for at least the first 2 weeks if agree with Dr. Moody we will start on it as early as tomorrow morning. Hyperglycemia: With no official diagnosis of diabetes, A1c has been borderline we will continue Accu-Chek with status post coverage of this point. Chronic edema: Patient is doing knee-high HERNANDEZ hose and low-salt in the past never require major diuretics she had an occasional use of hydrochlorothiazide or Dyazide when the swelling is worsening. 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 DVT prophylaxis: Patient was started on Xarelto 10 mg daily will continue 10 to 15 mg a day for total of 14 days initially. Pain control: Still having pain management system and add hydrocodone orally which patient seems to tolerate very well. Discharge planning hopefully home tomorrow with home care and PT. Objective - Vital Signs Vital signs: Vital Signs Temp 99.1 F 08/27/23 01:40 Pulse 77 08/27/23 01:40 Resp 14 08/27/23 01:40 BP 117/67 08/27/23 01:40 Pulse Ox 90 L 08/27/23 01:40 FiO2 Intake & Output 08/26/23 08/26/23 08/27/23 06:59 18:59 06:59 Intake Total 2451 Output Total 30 Balance 2421 Weight 81.9 kg Intake: IV 2451 Output: Estimated Blood Loss 30 Other: Voiding Method Toilet # Voids 0 3 - Labs CBC & Chem 7: 08/27/23 05:25
[2023-08-28 07:22] VITALS: RESP 18
--- NOTE | 2023-08-28 12:25 | P.DS ---
Providers Expected date of discharge: 08/28/23 Attending physician: Vincenzo Moody Consults: 08/26/23 08:47 Consult Physician Routine Consulting Provider: Gunnar Marcus Reason/Comments: medical management Do you want consulting provider notified?: Yes Primary care physician: Gunnar Marcus - Discharge Diagnosis(es) (1) Osteoarthritis of right knee Current Visit: Yes Status: Acute (2) Status post total right knee replacement Current Visit: Yes Status: Acute Hospital Course: This is a 83-year-old female with known history of degenerative arthritis of the right knee. The patient presented for evaluation as an outpatient. After discussion and consideration patient elects to proceed with total knee arthroplasty. The patient is seen preoperatively by Dr. Moody and medically cleared for surgery by their primary care physician. Patient is admitted to [facility] on 08/26/2023 for total knee arthroplasty. The procedure is performed without complication or sequelae. The patient is doing well postoperatively. Labs and vital signs are stable on day of discharge. On day of discharge patient's knee incision is healing well. There is minimal erythema. There is no drainage noted at this time. There is minimal soft tissue swelling to the knee. Patient has full foot and ankle motion without difficulty or pain. Calf is soft and nontender to palpation. Neurovascular status to the right lower extremity is intact. Patient is discharged home in good condition. Please see med rec for accurate list of home medications. Plan - Discharge Summary Discharge Rx Participant: Yes New Discharge Prescriptions: New HYDROcodone/APAP 7.5-325MG [[place] 7.5-325] 1 - 2 tab PO Q6H PRN #32 tab PRN Reason: Pain Aspirin 325 mg PO BID #60 tab Sennosides [Senokot] 2 tab PO DAILY PRN #60 tablet PRN Reason: Constipation No Action Simvastatin [Zocor] 40 mg PO HS Ezetimibe [Zetia] 10 mg PO DAILY Dorzolamide HCl/Pf [Dorzolamide 2% Eye Drop] 1 drop BOTH EYES BID Calcium, Magnesium, Zinc, Vitd 1 tab PO DAILY Aspirin [Adult Low Dose Aspirin EC] 81 mg PO DAILY Fish Oil 380mg 380 mg PO DAILY Acetaminophen Tab [Tylenol Tab] 500 - 1,000 mg PO Q4-6H PRN PRN Reason: Pain Latanoprost [Latanoprost 0.005%] 1 drop BOTH EYES HS Glucosamine/Chondr Arnold A Sod [[place] Bi-Flex Caplet] 1 each PO DAILY Calcium Carbonate [Calcium] 600 mg PO DAILY Discharge Medication List Simvastatin [Zocor] 40 mg PO HS 01/28/16 [History] Acetaminophen Tab [Tylenol Tab] 500 - 1,000 mg PO Q4-6H PRN 08/21/23 [History] Aspirin [Adult Low Dose Aspirin EC] 81 mg PO DAILY 08/21/23 [History] Calcium Carbonate [Calcium] 600 mg PO DAILY 08/21/23 [History] Calcium, Magnesium, Zinc, Vitd 1 tab PO DAILY 08/21/23 [History] Dorzolamide HCl/Pf [Dorzolamide 2% Eye Drop] 1 drop BOTH EYES BID 08/21/23 [History] Ezetimibe [Zetia] 10 mg PO DAILY 08/21/23 [History] Fish Oil 380mg 380 mg PO DAILY 08/21/23 [History] Glucosamine/Chondr Arnold A Sod [[place]ste[place] Bi-Flex Caplet] 1 each PO DAILY 08/21/23 [History] Latanoprost [Latanoprost 0.005%] 1 drop BOTH EYES HS 08/21/23 [History] Aspirin 325 mg PO BID #60 tab 08/26/23 [Rx] HYDROcodone/APAP 7.5-325MG [[place] 7.5-325] 1 - 2 tab PO Q6H PRN #32 tab 08/26/23 [Rx] Sennosides [Senokot] 2 tab PO DAILY PRN #60 tablet 08/26/23 [Rx] Follow up Appointment(s)/Referral(s): [facility],Equipment [NON-STAFF] - As Needed (*Please call [facility] to arrange for delivery of the Continuous Passive Motion (CPM) machine. ) [facility] [NON-STAFF] - 1-2 Days ([facility] will call you to schedule your in home physical therapy visits. ) Vincenzo Moody DO [Doctor of Osteopathic Medicine] - 09/03/23 1:15 pm Activity/Diet/Wound Care/Special Instructions: Weightbearing as tolerated with a walker. CPM 5-6h daily as tolerated. Leave dressing intact. Dressing may be removed by home care nurse or by patient in 7 days. Then change dressing twice daily until follow up. May shower with initial dressing intact and after removal. If dressing become saturated, please remove. Recommend use of compression stockings daily until follow up to help prevent swelling and blood clots. May remove at night before sleeping. Please take aspirin 325mg twice daily for 30 days to prevent blood clots. Please follow up with [facility] and call with any questions or concerns, . Discharge Disposition: HOME WITH HOME HEALTH SERVICES
[2023-08-28 13:47] VITALS: BP 117/67; PULSE 65; TEMP 98
--- NOTE | 2023-08-29 06:04 | P.PN ---
Subjective Progress Note Date: 08/28/23 HISTORY OF PRESENT ILLNESS: 83-year-old cardiomyopathy patient with History of hyperlipidemia, hyperglycemia, chronic osteoarthritis, left bundle branch block, chronic edema with phlebitis in the past. She was seen in our office for over 20 years no major admission to the hospital or major cardiovascular problem last 20 years. She had suffered from severe arthritis of the right knee become quite a bit worse last few months hindering her ability to do her daily activity and able to take care of her own house chores and staying active. She had seen Dr. Moody was diagnosed with severe degenerative arthritis of the right knee as close failure with conservative management decided to pursue total knee arthroplasty. She had her surgery today successfully with no major complications still have pain management systemic starting on her right knee, pain is under control and had no complication hemodynamically so far her blood pressure and vitals are pretty normal. Patient admitted to the hospital will be starting physical therapy service tonight or tomorrow morning. 08-27-2023: She is feeling well she developed to have slight increased pain on the knee. Mobility still slightly decreased at this point she started physical therapy but was a bit difficult. Patient does not want to go to SNF she will remain in the hospital 1 day to improve her ability to walk ambulate and control her symptoms hopefully will be able to go home tomorrow. No complication and agreed to initiate Xarelto 10 mg daily as an anticoagulation patient had sample from the office to last for up to 4 weeks orthopedic might do anticoagulation only for 2 weeks. Patient has much higher risk for DVT including her venous stasis, chronic edema and large Leyva's cyst. 08/28/2023: He is doing much better her pain is well-controlled, was able to ambulate with minimal help today, still have about equal probably to an extra day on her pain management system, tolerating home meds along with pain meds with hydrocodone orally. She received her first dose of Xarelto yesterday and will continue Xarelto 10 mg she has supply for at least 4 weeks. Which will be continued for at least total of 2 weeks to evaluate in office and decide whether to continue the full 4 weeks or months. Patient has enough help at home she will be discharged home today. REVIEW OF SYSTEMS: CONSTITUTIONAL: Well-developed no acute respiratory distress. EYES: No icterus sclerae, no conjunctivitis. EARS, NOSE, MOUTH, THROAT, and FACE: No sore throat, lymphadenopathy, carotid bruits or deformity. RESPIRATORY: No SOB cough or wheezes. CARDIOVASCULAR: No CP, Palpitation, PND, Orthopnea, or angina. GASTROINTESTINAL: No Abd pain, Nausea or vomiting, no Diarrhea or constipation, No GI Bleed, no distention or masses. GENITOURINARY: Negative for Hematuria or UTI, no kidney stones. INTEGUMENT/BREAST: Slight arthritis lower back pain. HEMATOLOGIC/LYMPHATIC: Negative for bleed or purpura. MUSCULOSKELTAL: Arthralgia and myalgia with Leyva's cyst on the right side. NEURLOGICAL: No LOC, Sz or syncope, blurred vision dizziness or abnormality.. BEHAVIORAL/PSYCH: Negative. ENDOCRINE: Negative. PHYSICAL EXAMINATION: General Appearance: Alert, cooperative, no distress, appears stated age. Neck HEENT: Supple, no lymphadenopathy, no thyroid enlargement, no carotid bruits. Lungs: Clear to auscultation without crackles or wheezes no rhonchi, no de formity. Chest Wall: Chest wall normal expansion with deep inspiration no tenderness and no deformity was found on exam, no costochondral pain or discomfort. Heart: Regular rate and rhythm, S1, S2 normal, no murmur, rub or gallop. Back: Symmetric, no curvature, ROM normal, no CVA tenderness. Abdomen: Soft, non-tender, bowel sounds active all four quadrants, no masses, no organomegaly. Extremities: Trace edema on both sides, right knee has Leyva's cyst incision being covered currently with dressing no sign of bleed she has a pain management system about the knee. Left side had still trace edema with mild varicose vein. Pulses: 2+ and symmetric. Skin: Skin color, texture, tugor normal, no rashes or lesions. Neurologic: Alert oriented x3 cranial nerves II through XII intact, no motor deficit, no abnormal balance or gait. ASSESSMENT AND PLAN: _Right total knee arthroplasty: Continue physical therapy made patient have home care and home therapy as well, pain meds is well-tolerated at this point still have the pain management system for at least another day. _Elevated blood pressure: Blood pressure is very stable and doing well so far no need for any medication adjustment. _Hyperlipidemia: Resume home meds at [facility] which is simvastatin and Zetia no side effects. 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 _Chronic stasis dermatitis and history of phlebitis. No increased swelling at this point does not require any more diuretics which can be used if start having more symptoms we will continue stocking to reduce edema and patient will be on DVT prophylaxis with Xarelto to help against having DVT. Hyperglycemia: With no official diagnosis of diabetes, A1c has been borderline we will continue Accu-Chek with status post coverage of this point. Chronic edema: Patient is doing knee-high HERNANDEZ hose and low-salt in the past never require major diuretics she had an occasional use of hydrochlorothiazide or Dyazide when the swelling is worsening. 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 DVT prophylaxis: Patient was started on Xarelto 10 mg daily will continue 10 to 15 mg a day for total of 14 days initially. Pain control: Still having pain management system and add hydrocodone orally which patient seems to tolerate very well. Discharge planning: Patient is well-managed to walk with a walker with minimum help she will have enough family help around patient be going home with home care and home physical therapy. Objective - Vital Signs Vital signs: Vital Signs Temp 98.9 F 08/28/23 01:05 Pulse 74 08/28/23 01:05 Resp 16 08/28/23 01:05 BP 136/75 08/28/23 01:05 Pulse Ox 95 08/28/23 01:05 FiO2 Intake & Output 08/27/23 08/27/23 08/28/23 06:59 18:59 06:59 Other: Voiding Method Toilet Toilet # Voids 2 3 4 - Labs CBC & Chem 7: 08/27/23 05:25 Labs: Abnormal Lab Results - Last 24 Hours (Table) 08/27/23 08/27/23 08/27/23 Range/Units 05:25 06:10 11:34 RBC 3.38 L (4.10-5.20) X 10*6/uL Hgb 10.2 L (12.0-15.0) g/dL Hct 33.0 L (37.2-46.3) % MCV 97.6 H (80.0-97.0) FL MCHC 30.9 L (32.0-37.0) g/dL POC Glucose (mg/dL) 118 H 220 H (70-110) mg/dL 08/27/23 Range/Units 16:30 RBC (4.10-5.20) X 10*6/uL Hgb (12.0-15.0) g/dL Hct (37.2-46.3) % MCV (80.0-97.0) FL MCHC (32.0-37.0) g/dL POC Glucose (mg/dL) 138 H (70-110) mg/dL
== END 2023-08-28 16:14 | disposition home health service (06) ==
LOC: OR 07:26 → 4SSUR 10:32 → OR 08-28 16:14
PROVIDERS: ATTEND Orthopaedic Surgery
DX: M17.11 Unilateral primary osteoarthritis, right knee (principal); E78.5 Hyperlipidemia, unspecified; H40.9 Unspecified glaucoma; I25.10 Atherosclerotic heart disease of native coronary artery without angina pectoris; I87.2 Venous insufficiency (chronic) (peripheral); J45.909 Unspecified asthma, uncomplicated; Z79.01 Long term (current) use of anticoagulants; Z79.82 Long term (current) use of aspirin; Z79.899 Other long term (current) drug therapy; Z91.018 Allergy to other foods
CPT/HCPCS: 97116; 97530; 97161; 64999; 64448; 85025; 73560; 27447; C1713; C1776; C1751; J2250; J0690 ×2; J2405; J3010; J2795